=== PATIENT | female | born 1985 | race Hispanic/Latino ===

== ENCOUNTER 2019-10-05 07:50 | Day surgery (SDC) | payer MEDICAID ==
[~2019-10-05] VITALS: Ht 160 cm; Wt 89.4 kg
[~2019-10-05 07:50] MED LIST: ACET-2743 PO; PANT40TA54 PO; SODIUM CHLORIDE 0.9% 1000ML 1,000 ML IV ONE; [UNRECOGNIZED DRUG - REMARK] PO
[2019-10-05 08:58] VITALS: BP 117/67
[2019-10-05] MEDS ORDERED: PROPOFOL 10 MG/ML 20ML VIAL IV ONE ×2 (09:10→09:18)
[2019-10-05 09:33] VITALS: BP 105/63
[2019-10-05 09:38] VITALS: BP 103/53
[2019-10-05 09:43] VITALS: BP 117/56
[2019-10-05 09:48] VITALS: BP 119/60
== END 2019-10-05 10:00 | disposition home or self-care (01) ==
LOC: ENDO 07:50 → DAH 07:50 → ENDO 10:00
PROVIDERS: ATTEND Internal Medicine Gastroenterology
DX: K92.2 Gastrointestinal hemorrhage, unspecified (principal); K64.0 First degree hemorrhoids; Z98.890 Other specified postprocedural states; Z79.899 Other long term (current) drug therapy; Z90.710 Acquired absence of both cervix and uterus; Z86.010 Personal history of colon polyps; Z80.0 Family history of malignant neoplasm of digestive organs; Z87.891 Personal history of nicotine dependence; Z82.5 Family history of asthma and other chronic lower respiratory diseases
CPT/HCPCS: 45378; A4215; A4221; A4222; A4223; A4606; A4615; A4663; J2704 ×2; J7030